=== PATIENT | male | born 1995 | race Caucasian/White ===

== ENCOUNTER 2017-08-16 02:59 | Emergency (ER) | payer OTHER ==
--- NOTE | 2017-08-16 04:13 | EDPHY ---
H & P Stated Complaint: L ankle injury Time Seen by Provider: 08/16/17 03:39 HPI/ROS: HPI The patient presents with left ankle injury which occurred about 3 hr prior to presentation. He fell off of a 7.5 ft roof, landing on his left ankle. He says it was internally rotated an obviously deformed after the fall. He says he reduced it back to a normal position. He now comes in with ongoing lateral ankle swelling and pain. He denies any numbness or tingling of his foot. He has been using a friend's crutches and has been unable to bear weight on it.. REVIEW OF SYSTEMS Constitutional: No fever, no chills. Skin: No rashes. Neurological: No headache. PMHx: Prior clavicular fracture PHYSICAL General Appearance: Alert, no distress Eyes: Pupils equal and round no pallor or injection ENT, Mouth: Mucous membranes moist Respiratory: Breathing comfortably Neurological: A&O, moves all extremities Skin: Warm and dry, no rashes Musculoskeletal: Neck is supple non tender Extremities: Left ankle with edema overlying the lateral malleolus, limited range of motion of ankle secondary to pain, 2+ DP pulses, full range of motion of toes with sensation intact Psychiatric: Patient is oriented X 3, there is no agitation Source: Patient Exam Limitations: No limitations - Personal History Current Tetanus/Diphtheria Vaccine: Unsure Current Tetanus Diphtheria and Acellular Pertussis (TDAP): Unsure - Medical/Surgical History Hx Asthma: No Hx Chronic Respiratory Disease: No Hx Diabetes: No Hx Cardiac Disease: No Hx Renal Disease: No Hx Cirrhosis: No Hx Alcoholism: No Hx HIV/AIDS: No Hx Splenectomy or Spleen Trauma: No Other PMH: STDs - Social History Smoking Status: Never smoked Constitutional: Initial Vital Signs Temperature (C) 36.6 C 08/16/17 03:01 Heart Rate 108 H 08/16/17 03:01 Respiratory Rate 17 08/16/17 03:01 Blood Pressure 123/74 H 08/16/17 03:01 O2 Sat (%) 96 08/16/17 03:01 O2 Delivery Mode Room Air Allergies/Adverse Reactions: No Known Allergies Allergy (Unverified 08/16/17 03:05) Home Medications: Medication Instructions Recorded NK [No Known Home Meds] 08/16/17 Medical Decision Making - Diagnostics Imaging Results: X-ray left ankle three views shows distal fibular fracture, possible medial talar fracture, interpreted by me, radiology interpretation is pending. Imaging: I viewed and interpreted images myself Procedures: SPLINT Procedure: Splint placement. A ortho glass posterior short-leg splint was applied to the left leg by the tech. After application of the splint I returned and re-examined the patient. The splint was adequately immobilizing the joint and distal to the splint the patient's circulation and sensation was intact. Differential Diagnosis: 21-year-old male who fell off of 7.5 ft tall roof, landing on his left ankle which rotated internally. He describes ankle dislocation by history which he reduced himself. He is now having ankle pain and swelling, especially overlying the lateral aspect. Differential diagnosis includes ankle fracture, ankle sprain, less likely foot fracture. In the emergency department, x-rays were obtained which demonstrated distal fibular fracture with possible medial talar fracture. The patient was placed in a posterior short-leg splint. He has crutches with him already. He was given instructions for rest, ice, elevation, Tylenol as needed for pain. I will have him follow up with Orthopedics in about 1 week for further care. He is to not bear any weight until then. Departure - Departure Disposition: Home, Routine, Self-Care Clinical Impression: Fibula fracture Qualifiers: Encounter type: initial encounter Fibula location: distal Fracture type: closed Fracture morphology: unspecified fracture morphology Laterality: left Qualified Code(s): S82.832A - Other fracture of upper and lower end of left fibula, initial encounter for closed fracture Condition: Good Instructions: Ankle Fracture (ED), Splint Care (ED) Additional Instructions: I recommend you take Tylenol 650 mg every 6 hr as needed for pain. Wear the splint at all times. Please call the orthopedist listed below for a follow-up appointment in the next 1 week. Referrals: Stanislaw Hsu MD [Medical Doctor] - As per Instructions
[2017-08-16 04:15] VITALS: BP 106/59
== END 2017-08-16 04:14 | disposition home or self-care (01) ==
DX: S82.832A Other fracture of upper and lower end of left fibula, initial encounter for closed fracture (principal); W13.2XXA Fall from, out of or through roof, initial encounter